=== PATIENT | male | born 1975 | race Caucasian/White ===

== ENCOUNTER → 2018-08-11 07:29 | Outpatient (CLI) | payer OTHER, SELFPAY ==
[2018-08-11 08:04] LABS: Lactate (Lactic Acid) 2.1 mmol/L (0.7-2.1)
[2018-08-11 08:10] LABS: Cholesterol 124 mg/dL (140-199); HDL Cholesterol 58 mg/dL (40-60); LDL Cholesterol Calculated 55 mg/dL (<100); Triglycerides 54 mg/dL (35-150)
[2018-08-11 08:11] LABS: C-Reactive Protein Quant < 0.5 mg/dL (<1.0)
[2018-08-11 08:16] LABS: Add Manual Diff / Slide Review NO; Basophils Absolute Auto 0 /uL (0-100); Basophils Percent Auto 0.7 % (0-2); Eosinophils Absolute Auto 100 /uL (0-450); Eosinophils Percent Auto 1.9 % (2-4); Hematocrit 33.8 % (41-53); Hemoglobin 10.5 g/dL (13.5-17.5); Lymphocytes Absolute Auto 1100 /uL (1100-4500); Lymphocytes Percent Auto 17.4 % (25-40); Mean Corpuscular HGB Conc 31.1 % (30-36); Mean Corpuscular Hemoglobin 24.1 PG (26-34); Mean Corpuscular Volume 77.3 fL (80-100); Monocytes Absolute Auto 600 /uL (0-900); Monocytes Percent Auto 9.8 % (3-14); Neutrophils Absolute Auto 4400 /uL (1500-7000); Neutrophils Percent Auto 70.2 % (50-75); Platelet Count 419 X10^3/uL (150-400); Red Blood Cell Count 4.38 X10^6/uL (4.5-5.9); Red Cell Distribution Width 17.4 % (11.6-14.8); Reticulocyte Count, Percent 1.2 % (0.87-2.60); White Blood Cell Count 6.2 X10^3/uL (4.5-11.0)
[2018-08-11 08:18] LABS: HEMOLYSIS < 15 (0-50); Iron 20 ug/dL (49-181)
[2018-08-11 08:28] LABS: Percent Iron Saturation 5 % (20-50); Total Iron Binding Capacity 402 ug/dL (261-462); Transferrin 295 mg/dL (206-381)
[2018-08-11 08:35] LABS: Vitamin D 25 Hydroxy (D3) 33.5 ng/mL (30.0-100.0)
[2018-08-11 09:12] LABS: Folate 18.9 ng/mL (2.76-20.0); Vitamin B12 335 pg/mL (239-931)
== END ==
PROVIDERS: PCP Student in an Organized Health Care Education/Training Program; Visit Provider Student in an Organized Health Care Education/Training Program
DX: K50.90 Crohn's disease, unspecified, without complications (principal); E55.9 Vitamin D deficiency, unspecified; Z13.220 Encounter for screening for lipoid disorders
CPT/HCPCS: 36415; 80061; 82306; 82607; 82746; 83540; 83550; 83605; 85025; 85045; 86140

== ENCOUNTER → 2018-08-15 06:17 | Outpatient (CLI) | payer OTHER, SELFPAY ==
--- NOTE | 2018-08-15 06:40 | DI.CT.S_ITS ---
PROCEDURE: CT ABDOMEN PELVIS WO CON INDICATIONS: Crohn's disease, abdominal pain TECHNIQUE: After the administration of oral contrast, 5 mm thick sections acquired from the diaphragms to the symphysis. 5 mm coronal and sagittal reformats were performed. For radiation dose reduction, the following was used: automated exposure control, adjustment of mA and/or kV according to patient size. COMPARISON: None. FINDINGS: Image quality: Excellent. ABDOMEN: Lung bases: Lung bases are clear. Heart size is normal. Solid organs: Liver is normal in size. Gallbladder is unremarkable. Pancreas is normal in size. Spleen is normal in size. No adrenal nodules. Both kidneys are normal in size, without hydronephrosis or nephrolithiasis. Peritoneum and bowel: The proximal small bowel is somewhat dilated, and the distal small bowel is decompressed. However, there is no transition point noted. Dilated loops measure up to 3.6 cm. The distal ileum is normal in appearance. Moderate fecal debris in the colon. No fistula or thickened bowel loop or free air or free fluid or abscess cavity is identified. Nodes and vessels: No retroperitoneal or mesenteric adenopathy by size criteria. Aorta and inferior vena cava are normal in size. Miscellaneous: No ventral hernias. PELVIS: Genitourinary: Bladder wall thickness is normal. Miscellaneous: No inguinal hernias or adenopathy. Bones: No suspicious bony lesions. No vertebral body compression fractures. IMPRESSION: 1. Proximal small bowel is mildly dilated up to 3.6 cm. Distal small bowel is decompressed. This may be within normal limits. However, partial small bowel obstruction is not excluded. Does this patient have a history of previous abdominal surgery? 2. Otherwise unremarkable CT scan of the abdomen and pelvis without IV contrast. No evidence of stricture, fistula, or abscess. Dictated by: Tom Dobbins M.D. on 08/15/2018 at 13:24 Approved by: Tom Dobbins M.D. on 08/15/2018 at 13:28
== END ==
PROVIDERS: PCP Student in an Organized Health Care Education/Training Program; Visit Provider Student in an Organized Health Care Education/Training Program
DX: K50.90 Crohn's disease, unspecified, without complications (principal); R10.9 Unspecified abdominal pain
CPT/HCPCS: 74176

== ENCOUNTER → 2019-01-11 13:48 | Outpatient (CLI) | payer OTHER, SELFPAY ==
[2019-01-11 14:20] LABS: Hematocrit 39.5 % (41-53); Hemoglobin 12.9 g/dL (13.5-17.5); Mean Corpuscular HGB Conc 32.7 % (30-36); Mean Corpuscular Hemoglobin 29.2 PG (26-34); Mean Corpuscular Volume 89.3 fL (80-100); Platelet Count 259 X10^3/uL (150-400); Red Blood Cell Count 4.43 X10^6/uL (4.5-5.9); Red Cell Distribution Width 23.9 % (11.6-14.8); White Blood Cell Count 5.8 X10^3/uL (4.5-11.0)
[2019-01-11 14:44] LABS: HEMOLYSIS < 15 (0-50); Iron 60 ug/dL (49-181)
[2019-01-11 14:55] LABS: Percent Iron Saturation 20 % (20-50); Total Iron Binding Capacity 307 ug/dL (261-462); Transferrin 254 mg/dL (206-381)
== END ==
PROVIDERS: PCP Student in an Organized Health Care Education/Training Program; Visit Provider Student in an Organized Health Care Education/Training Program
DX: D50.9 Iron deficiency anemia, unspecified (principal)
CPT/HCPCS: 36415; 83540; 83550; 85027

== ENCOUNTER → 2019-03-16 08:35 | Outpatient (CLI) | payer OTHER, SELFPAY | PROVIDERS: PCP Student in an Organized Health Care Education/Training Program | DX: Z23 Encounter for immunization (principal) | CPT/HCPCS: 90471; 90686 ==

== ENCOUNTER → 2019-03-16 15:49 | Outpatient (CLI) | payer OTHER, SELFPAY | PROVIDERS: PCP Student in an Organized Health Care Education/Training Program ==